=== PATIENT | female | born 1940 | race Caucasian/White ===

== ENCOUNTER 2022-01-21 10:04 | Emergency (ER) | payer MEDICARE ==
[~2022-01-21] VITALS: Ht 170.2 cm; Wt 105.3 kg
[2022-01-21 10:22] VITALS: BP 168/86
[2022-01-21] MEDS ORDERED: ondansetron 4mg rapidly disintigrating tab PO ONE (11:25)
[2022-01-21] MEDS ORDERED: LIDOcaine 5% patch TP ONE (11:25)
[2022-01-21] MEDS ORDERED: acetaminophen 325mg tablet PO ONE (11:25)
[2022-01-21] MEDS ORDERED: HYDROcodone/acetaminophen 5mg/325mg tablet PO ONE (11:25)
[2022-01-21] MEDS ORDERED: orphenadrine citrate 60mg/2ml inj. IM ONE (11:25)
[2022-01-21 11:47] LABS: BASOPHILS % (AUTO) 0.3 % (0-1); EOSINOPHILS # (AUTO) 0.1 X10'3 (0-0.9); EOSINOPHILS % (AUTO) 1.3 % (0-6); HEMATOCRIT 40.9 % (35.0-45.0); HEMOGLOBIN 13.4 g/dl (12.0-16.0); LYMPHOCYTES # (AUTO) 1.4 X10'3 (1.1-4.8); LYMPHOCYTES % (AUTO) 20.3 % (21-51); MEAN CORPUSCULAR HGB CONC 32.9 g/dL (33.0-36.5); MEAN CORPUSCULAR VOLUME 85.3 FL (78-98); MEAN PLATELET VOLUME 9.6 FL (7.4-10.4); MONOCYTES # (AUTO) 0.6 X10'3 (0-0.9); MONOCYTES % (AUTO) 8.5 % (2-12); NEUTROPHILS # (AUTO) 4.8 X10'3 (1.8-7.7); NEUTROPHILS % (AUTO) 69.6 % (42-75); PLATELET COUNT 227 X10'3 (140-440); RED BLOOD COUNT 4.79 X10'6 (4.20-5.60); RED CELL DISTRIBUTION WIDTH 15.2 % (11.5-14.5); WHITE BLOOD COUNT 6.8 X10'3 (4.5-11.0)
[2022-01-21 11:53] LABS: ALANINE AMINOTRANSFERASE 28 U/L (12-78); ALBUMIN 4.2 G/DL (3.4-5.0); ALBUMIN/GLOBULIN RATIO 1.4 (1.1-1.5); ALKALINE PHOSPHATASE 88 IU/L (46-116); ANION GAP 10 (8-16); ASPARTATE AMINO TRANSFERASE 21 U/L (10-37); BILIRUBIN,TOTAL 0.7 MG/DL (0.1-1.0); BLOOD UREA NITROGEN 10 MG/DL (7-18); BUN/CREATININE RATIO 17.9 (6.6-38.0); CHLORIDE 104 MMOL/L (99-107); CREATININE 0.56 MG/DL (0.40-0.90); GLUCOSE 111 MG/DL (70-104); POTASSIUM 3.9 MMOL/L (3.5-5.1); SODIUM 142 MMOL/L (135-145); TOTAL CARBON DIOXIDE 27.8 MMOL/L (24-32); TOTAL PROTEIN 7.3 G/DL (6.4-8.2); eGFR > 90 ML/MIN
[2022-01-21] MEDS ORDERED: LIDO30CR TOP (11:59)
[2022-01-21] MEDS ORDERED: FAMC500T23 PO (11:59)
[2022-01-21] MEDS ORDERED: HYDR-3965 PO (11:59)
== END 2022-01-21 12:21 | disposition home or self-care (01) ==
LOC: ER 10:05
DX: M54.50 Low back pain, unspecified (principal); B02.9 Zoster without complications; M19.90 Unspecified osteoarthritis, unspecified site; Z79.2 Long term (current) use of antibiotics; Z79.899 Other long term (current) drug therapy
CPT/HCPCS: 36415; 80053; 85025; 96372; 99284; J2360

== ENCOUNTER 2024-08-21 17:19 | Emergency (ER) | payer MEDICARE ==
[~2024-08-21] VITALS: Ht 170.2 cm; Wt 85.0 kg
[~2024-08-21 17:19] MED LIST: FAMC500T23 PO; LIDO30CR TOP
[2024-08-21 18:11] LABS: BASOPHILS % (AUTO) 0.5 % (0-1); EOSINOPHILS # (AUTO) 0.1 X10'3 (0-0.9); EOSINOPHILS % (AUTO) 1.5 % (0-6); HEMATOCRIT 39.7 % (35.0-45.0); LYMPHOCYTES # (AUTO) 1.4 X10'3 (1.1-4.8); LYMPHOCYTES % (AUTO) 17.7 % (21-51); MEAN CORPUSCULAR HEMOGLOBIN 29.2 PG (27.0-31.0); MEAN CORPUSCULAR HGB CONC 32.7 g/dL (33.0-36.5); MEAN CORPUSCULAR VOLUME 89.2 FL (78-98); MEAN PLATELET VOLUME 9.3 FL (7.4-10.4); MONOCYTES # (AUTO) 0.6 X10'3 (0-0.9); MONOCYTES % (AUTO) 8.4 % (2-12); NEUTROPHILS # (AUTO) 5.5 X10'3 (1.8-7.7); NEUTROPHILS % (AUTO) 71.9 % (42-75); PLATELET COUNT 205 X10'3 (140-440); RED BLOOD COUNT 4.45 X10'6 (4.20-5.60); RED CELL DISTRIBUTION WIDTH 14.4 % (11.5-14.5); WHITE BLOOD COUNT 7.7 X10'3 (4.5-11.0)
[2024-08-21 18:21] LABS: ALANINE AMINOTRANSFERASE 31 U/L (12-78); ALBUMIN/GLOBULIN RATIO 1.4 (1.1-1.5); ALKALINE PHOSPHATASE 110 IU/L (46-116); ANION GAP 7 (8-16); ASPARTATE AMINO TRANSFERASE 26 U/L (10-37); BILIRUBIN,TOTAL 0.7 MG/DL (0.1-1.0); BLOOD UREA NITROGEN 25 MG/DL (7-18); BUN/CREATININE RATIO 25.5 (10.0-20.0); CHLORIDE 106 MMOL/L (99-107); CREATININE 0.98 MG/DL (0.40-0.90); GLUCOSE 103 MG/DL (70-104); POTASSIUM 3.6 MMOL/L (3.5-5.1); SODIUM 142 MMOL/L (135-145); TOTAL CARBON DIOXIDE 28.8 MMOL/L (24-32); TOTAL PROTEIN 6.9 G/DL (6.4-8.2); eCRCL 43 ML/MIN; eGFR 54 ML/MIN
[2024-08-21 18:28] LABS: PRO BRAIN NATRIURETIC PEPTIDE 249 PG/ML (0-450)
[2024-08-21 19:58] VITALS: BP 167/82; PULSE 90; RESP 18; TEMP 97.8; O2SAT 99
== END 2024-08-21 20:00 | disposition home or self-care (01) ==
LOC: ER 17:19
DX: S01.02XA Laceration with foreign body of scalp, initial encounter (principal); R55 Syncope and collapse; M19.90 Unspecified osteoarthritis, unspecified site; I44.7 Left bundle-branch block, unspecified; Z79.899 Other long term (current) drug therapy; W19.XXXA Unspecified fall, initial encounter; Y93.89 Activity, other specified; Y92.89 Other specified places as the place of occurrence of the external cause; Y99.8 Other external cause status
CPT/HCPCS: 12032; 36415; 70450; 71045; 80053; 82948; 83880; 84484; 85025; 93005; 99285; A6402; J7030; Z7610; A6449

== ENCOUNTER 2024-09-03 11:48 | Emergency (ER) | payer MEDICARE ==
[~2024-09-03] VITALS: Ht 170.2 cm; Wt 110.0 kg
[2024-09-03 14:41] VITALS: BP 168/74; PULSE 75; RESP 16; TEMP 98.3; O2SAT 98
== END 2024-09-03 14:43 | disposition home or self-care (01) ==
LOC: ER 11:48
DX: S01.01XD Laceration without foreign body of scalp, subsequent encounter (principal); Z48.02 Encounter for removal of sutures; M19.90 Unspecified osteoarthritis, unspecified site; Z79.899 Other long term (current) drug therapy; X58.XXXD Exposure to other specified factors, subsequent encounter
CPT/HCPCS: 99284

== ENCOUNTER 2024-09-14 15:05 | Outpatient (CLI) | payer MEDICARE ==
[2024-09-14] VITALS (20 sets, daily range): BP systolic 79–151; BP diastolic 48–91; PULSE 63–86
== END 2024-09-14 23:59 | disposition home or self-care (01) ==
LOC: CARD DIAG 15:05
PROVIDERS: ATTEND Internal Medicine Interventional Cardiology
DX: R42 Dizziness and giddiness (principal)
CPT/HCPCS: 93660